=== PATIENT | female | born 1985 | race Caucasian/White ===

== ENCOUNTER → 2017-05-07 10:44 | Outpatient (CLI) | payer OTHER, SELFPAY ==
[2017-05-07 15:09] LABS: Group B Strep DNA By PCR Negative (Negative); Internal Control PASS; Probe Check PASS; Specimen Processing Control PASS
== END ==
PROVIDERS: Visit Provider Obstetrics & Gynecology
DX: Z36.85 Encounter for antenatal screening for Streptococcus B (principal)
CPT/HCPCS: 87081; 87653

== ENCOUNTER 2017-05-30 07:00 | Inpatient (IN) | payer OTHER, SELFPAY ==
[2017-05-30 07:31] VITALS: BMI 36.2
[2017-05-30] MEDS: Lactated Ringers 1,000 ML 50 ML IV ×2 (07:36→10:50)
[2017-05-30 08:05] LABS: Hematocrit 33.1 % (37-47); Hemoglobin 11.4 g/dl (12.0-15.0); Mean Corp Hgb Conc 34.4 g/gl (32-36); Mean Corpuscular Volume 89.9 fL (81-99); Mean Platelet Vol. 11.3 fl (6.2-12.0); Platelet Count 180 K/mm3 (150-450); RBC Distribution Width SD 45.1 fl (35.1-43.9); Red Blood Count 3.68 M/mm3 (4.2-5.4); Scan Indicated on CBC? Y/N NO; White Blood Count 10.5 K/mm3 (4.4-11.0)
[2017-05-30] MEDS: Oxytocin 30 units/NS 500 ml 30 UNITS/500 ML IV.SOLN IV (09:29)
[2017-05-30] MEDS: fentaNYL-bupivacaine (epidural) 100 ML BAG EPIDURAL (11:29)
[2017-05-30] MEDS: Oxytocin 30 units/NS 500 ml 30 UNITS/500 ML IV.SOLN 334 UNITS IV (14:15)
--- NOTE | 2017-05-30 14:24 | PCM.OB.VAG ---
Vaginal Delivery Maternal Presentation: Elective Induction 39 2/7 wk, favorable cervix. h/o LGA baby Method of Induction: Pitocin, Amniotomy Amniotic Membrane Rupture Type: Artificial Amniotic Fluid Description: Clear Final YEHUDA: 06/04/17 Final YEHUDA Source: US <20 weeks Gestational age: 39 Weeks and 2 Days Date of Procedure: 05/30/17 Pre-Operative Diagnosis: 39 2/7 wk induction Post-Operative Diagnosis: same Surgery/ Procedure Performed: Spontaneous Vaginal Delivery Type of Anesthesia: Epidural Description of Procedure: of a valentine viable male over intact perineum to 2nd posterior vaginal / perineal laceration. Head delivered YOJANA. No nuchal cord. Shoulders delivered immediately after VTX. OP and nares bulb suctioned after delivery of . Baby to maternal abdomen with spont, vigorous cry. Ap 8/9 weight pending. No cord gases collected. Cord blood for typing collected from umbilical cord. Incidentally: Falcon bulb pushed out through urethral with maternal expulsive effort of . PP exam; 2nd deg posterior vaginal to perineal laceration. Repaired under epidural to hemostatic, intact with 3-0 Vicryl. Placenta delivered by spont expulsion, expression. 3V cord, normal appearing, intact with trailinig membranes. EBL 350 cc Ray Samanta counts correct x two. Presentation: Vertex, YOJANA Placental Delivery Description: Spontaneous, Expressed Placenta Disposition: [facility] Cord Vessel Description: 3 Vessels Cord Entanglement: None Drain: Falcon to straight drain - bulb pushed out through urethra with delivery of infant. Urethra inspected: hemostatic, no bleeding noted. Estimated Blood Loss: 350 Infant A gender: Male (1 minute): 8 (5 minute): 9 Episiotomy Description: None Laceration: Midline, Perineal Extension/lac, Vaginal Extension/lac, 2nd degree Medications given after delivery: IV Pitocin Complications: None
--- NOTE | 2017-05-30 14:31 | DCINST_ITS ---
Discharge Diet: No Restrictions Discharge Activity: May Shower, May Take a Tub Bath Return to work on:: 07/15/17 May resume sexual activity in: 4-6 weeks Additional Activity Instructions:: Nothing in the vagina for 4-6 weeks. You may return to work/school in 6 weeks. Additional Instructions: If you experience any of the following, contact your healthcare provider. * Bleeding that soaks a pad every hour for 2 hours * Fever 100.4 or higher * Unrelieved abdominal pain * Problems urinating (including inability to urinate or burning while urinating) . * Visual changes * Severe headache * Flu-like symptoms * Pain or redness in one of both of your breasts * Pain, warmth, tenderness or swelling in your legs, especially the calf area * Frequent nausea and vomiting * Symptoms of depression or anxiety If you experience any of the following, call 911 or go to the nearest Emergency Room. * Chest pain * Problems breathing * Seizure activity * Partial or complete paralysis of a body part, slurred speech, weakness or drooping of the face, or a sudden inability to walk or hold your balance Allergies/Adverse Reactions: Allergies azithromycin [From Zithromax Z-Sam] Allergy (Verified 05/12/15 05:50) Hives Medications to take at Discharge Vits [Prenatabs FA] 1 tablet PO DAILY 05/12/15 Orders to be completed after discharge: Electric breast pump Time Frame: 1 Year, Location: None Selected Please Follow Up With: Josephine Paige MD - [phone] When: Call to make an appointment with your doctor in 6 weeks. If you had elevated Blood Pressure or 4th degree laceration you will need to be seen in 2 weeks. Primary Care Physician: Camilo Diggs [Primary Care Provider] -
[2017-05-30] MEDS: Oxytocin 30 units/NS 500 ml 30 UNITS/500 ML IV.SOLN 167 UNITS IV (14:45)
[2017-05-30 18:00] VITALS: PULSE 67; RESP 18; TEMP 36.4
[2017-05-30 18:01] LABS: Bedside Glucose 125 mg/dL (70-110)
--- NOTE | 2017-05-30 18:21 | PCM.PN.BLA ---
Progress Note Summary of Events Emergency call art range. On my arrival, pt sitting on toilet and in and out of consciousness. Nurse administered inhalant salts with patient returning to consciousness. No tonic clonic movements witnessed. Patient assisted to wheelchair with 3 person assist and wheeled to bedside. Transferred to bed with 2 person assist. Patient alert and oriented to person, place, and time with improvement of color. She reports everything darkening while sitting on toilet after emptying bladder. She was not attempting a bowel movement. Denies prior syncopal episodes or arrythmia. Episode not preceded by heart racing or shortness of breath. This was the first time she was out of bed following delivery. uncomplicated with 2nd degree perineal laceration. Denies further lightheadedness. POC glucose 125. BP 115/60 with heart rate 64. RRR with fundus firm at 2 below umbilicus and nontender with no clots on expression. Encouraged PO fluid hydration. Sx likely due to incomplete fluid equilibration. No evidence of hemorrhage. Hemodynamically stable. Will repeat CBC in am.
[2017-05-30 18:30] VITALS: BP 121/74; PULSE 81
--- NOTE | 2017-05-30 18:33 | PN_ITS ---
Progress Note Summary of Events Emergency call rat range. On my arrival, pt sitting on toilet and in and out of consciousness. Nurse administered inhalant salts with patient returning to consciousness. No tonic clonic movements witnessed. Patient assisted to wheelchair with 3 person assist and wheeled to bedside. Transferred to bed with 2 person assist. Patient alert and oriented to person, place, and time with improvement of color. She reports everything darkening while sitting on toilet after emptying bladder. She was not attempting a bowel movement. Denies prior syncopal episodes or arrythmia. Episode not preceded by heart racing or shortness of breath. This was the first time she was out of bed following delivery. uncomplicated with 2nd degree perineal laceration. Denies further lightheadedness. POC glucose 125. BP 115/60 with heart rate 64. RRR with fundus firm at 2 below umbilicus and nontender with no clots on expression. Encouraged PO fluid hydration. Sx likely due to incomplete fluid equilibration. No evidence of hemorrhage. Hemodynamically stable. Will repeat CBC in am.
--- NOTE | 2017-05-30 18:46 | NURSING ---
1750 pt second attempt to stand states she wants to try to get up and walk to the BR. gait steady and states has all her feeling back in her legs. Aditya and I assisted her. Shortly after sitting on the commode Jenise slumped to the side and went unconscious, not responding. We called for more help and an ammonia inhalent was brought in. After several seconds she started responding vaguely to us calling her name. The inhalent was taken away and she immediately slumped sideways again. The inhalent was returned to her nose and she revived again. We sat her in a wheelchair and had her return to bed. Vitals checked and are stable.After a short time she stated she was feeling better but now was nauseated. Dr. Dalia Zimmerman was here during the incident. 1829 She had approx. 700 cc emesis . Vitals remain stable. 1899 States feeling better but requesting Aleve for cramping.
--- NOTE | 2017-05-30 19:06 | NURSING ---
190Peripad changed for mod amt. bleeding.
[2017-05-30 19:55] VITALS: BP 129/63; PULSE 82; RESP 18; TEMP 37.4; O2SAT 97
[2017-05-30] MEDS: Ibuprofen 600 MG Tablet PO (20:05)
[2017-05-30] MEDS: Senna/Docusate Sodium 1 Tablet PO (22:18)
[2017-05-30 23:22] VITALS: BP 117/57; PULSE 80; RESP 18; TEMP 36.6; O2SAT 96
[2017-05-30] MEDS: Acetaminophen 500 MG Tablet 1000 MG PO (23:39)
[2017-05-31 04:00] VITALS: BP 113/59; PULSE 81; RESP 18; TEMP 36.9; O2SAT 94
[2017-05-31 04:50] LABS: Hematocrit 30.5 % (37-47); Hemoglobin 10.2 g/dl (12.0-15.0); Mean Corp Hgb Conc 33.4 g/gl (32-36); Mean Corpuscular Hgb 30.1 pg (27.0-32.0); Platelet Count 176 K/mm3 (150-450); RBC Distribution Width SD 46.2 fl (35.1-43.9); Red Blood Count 3.39 M/mm3 (4.2-5.4); White Blood Count 14.4 K/mm3 (4.4-11.0)
[2017-05-31 04:51] LABS: Scan Indicated on CBC? Y/N NO
[2017-05-31] MEDS: Ibuprofen 600 MG Tablet PO ×2 (07:38→14:56)
[2017-05-31] MEDS: Senna/Docusate Sodium 1 Tablet PO (07:39)
[2017-05-31 08:06] VITALS: BP 112/59; PULSE 80; RESP 16; TEMP 36.3; O2SAT 96
--- NOTE | 2017-05-31 08:14 | PCM.PN.OB ---
Subjective: PPD#1 Doing well. No concerns voiced. baby nursing well. 9# 7 oz wt . relates episode of passing out in bathroom and record reviewed. Random glucose then 125. No other problems since delivery. Up to bathroom, no dizziness / weakness with walking. and would like to go home today if possible. CBC done this AM. - Physical Exam General: Alert, Oriented x3, Cooperative, No apparent distress HEENT: Atraumatic Neck: Supple Abdomen: Soft - fundus firm NT at 2-3 cm inferior to umbilicus Neurological: Cranial nerves II-XII grossly intact Psych/Mental Status: Normal Affect Vital Signs Temp Pulse Resp BP Pulse Ox 97.3 F L 80 16 112/59 L 96 05/31/17 08:06 05/31/17 08:06 05/31/17 08:06 05/31/17 08:06 05/31/17 08:06 Oxygen Delivery Method Room Air Weight: 105 kg Body Mass Index (BMI) 36.2 Intake and Output for Last 24 Hours 05/29/17 05/30/17 05/31/17 23:59 23:59 23:59 Intake Total 2795 / 2795 Output Total 1175 / 1175 Balance 1620 / 1620 Laboratory Tests Past 24 Hrs 05/30/17 05/31/17 07:35 04:40 WBC 14.4 H RBC 3.39 L Hgb 10.2 L Hct 30.5 L MCV 90.0 MCH 30.1 MCHC 33.4 RDW 14.0 RDW Differential 46.2 H Plt Count 176 MPV 11.0 Blood Type A NEGATIVE Antibody Screen NEGATIVE POC Glucose 05/30/17 17:57 POC Glucose 125 H Medical Necessity - Tobacco Use Smoking Status: Never smoker Assessment/Plan PPD#1 Stable pp. CBC stable. likely vasovagal event last night when in bathroom and none since Dischg home later today. RTO in 6 wk for pp check.
[2017-05-31 12:06] VITALS: BP 109/53; PULSE 89; RESP 18; TEMP 36.5; O2SAT 96
[2017-05-31 16:15] VITALS: BP 120/68; PULSE 97; TEMP 36.4; O2SAT 98
== END 2017-05-31 18:35 | disposition home or self-care (01) | DRG 775 ==
PROVIDERS: Obstetrics & Gynecology; Admitting Provider Obstetrics & Gynecology; Family Provider Family Medicine; PCP Family Medicine; Visit Provider Obstetrics & Gynecology
DX: O70.1 Second degree perineal laceration during delivery (principal); Z37.0 Single live birth; Z3A.39 39 weeks gestation of pregnancy; R55 Syncope and collapse
CPT/HCPCS: 59025; 59050; 82962; 85027; 86850; 86900; 99218; J7120; G0378

== ENCOUNTER → 2021-02-01 | Outpatient (CLI) | payer OTHER, SELFPAY ==
[2021-02-01 13:31] LABS: Amphetamine Urine VISTA NEGATIVE (<1000 ng/mL); Barbiturate Urine VISTA NEGATIVE (< 200 ng/mL); Benzodiazepine Urine VISTA NEGATIVE (< 200 ng/mL); Cocaine Urine VISTA NEGATIVE (< 300 ng/mL); Ecstacy Urine VISTA NEGATIVE (< 500 ng/mL); Methadone Urine VISTA NEGATIVE (< 300 ng/mL); PCP Urine VISTA NEGATIVE (< 25 ng/mL); THC Urine VISTA NEGATIVE (< 50 ng/mL); Vista UDS pH Range 6
[2021-02-02 22:07] LABS: Chlamydia By Nucleic Acid AMP Negative (Negative)
[2021-02-03 08:08] LABS: Gonococcus By Nucleic Acid AMP Negative (Negative)
[2021-02-06 13:32] LABS: HPV APTIMA, High Risk Negative (Negative)
== END | disposition home or self-care (01) ==
LOC: LABSPEC 12:38
PROVIDERS: PCP Family Medicine; Visit Provider Obstetrics & Gynecology
DX: Z34.90 Encounter for supervision of normal pregnancy, unspecified, unspecified trimester (principal)
CPT/HCPCS: 80307; 87086; 87088; 87491; 87591; 87624; 88175; G0145

== ENCOUNTER 2021-02-28 10:38 | Outpatient (CLI) | payer OTHER, SELFPAY ==
[2021-02-28 11:03] LABS: Absolute Neutrophil Count 7.1 X10^3/uL (2.0-7.7); Basophil# 0.04 X10^3/uL; Basophil% 0.4 % (0-1); Eosinophil# 0.22 X10^3/uL; Eosinophils% 2.3 % (0-5); Hemoglobin 11.9 g/dL (12.0-15.0); Lymphocyte % 13.8 % (19-41); Mean Corpuscular Hgb 30.7 pg (27.0-32.0); Mean Corpuscular Volume 87.6 fL (81-99); Mean Platelet Vol. 11.1 fl (6.2-12.0); Monocyte# 0.79 X10^3/uL; Monocyte% 8.4 % (0-10); NRBC Flagged by Analyzer 0 % (0-5); Neutrophil # 7.07 X10^3/uL (2.7-7.7); Neutrophil % 74.8 % (47-70); Platelet Count 184 K/mm3 (150-450); RBC Distribution Width CV 12.7 % (11.6-14.6); RBC Distribution Width SD 39.9 fl (35.1-43.9); Red Blood Count 3.88 M/mm3 (4.2-5.4); White Blood Count 9.5 K/mm3 (4.4-11.0)
[2021-02-28 11:10] LABS: Glucose Challenge Gest 1H 50g 99 mg/dL (70-140)
[2021-02-28 11:54] LABS: HIV - WCH Non-Reactive (Nonreactive); Hepatitis B Surface Antigen Non-Reactive (Nonreactive); Hepatitis C Antibody Non-Reactive (Nonreactive); Rubella IgG Reactive (Nonreactive); Syphilis Antibodies Non-reactive
== END 2021-02-28 23:59 | disposition short-term general hospital (02) ==
LOC: PAVLAB 10:40
PROVIDERS: PCP Family Medicine; Referring Provider Obstetrics & Gynecology; Visit Provider Obstetrics & Gynecology
DX: Z34.90 Encounter for supervision of normal pregnancy, unspecified, unspecified trimester (principal)
CPT/HCPCS: 36415; 82950; 85025; 86703; 86762; 86780; 86803; 86850; 86900; 86901; 87340

== ENCOUNTER → 2021-06-13 | Outpatient (CLI) | payer OTHER, SELFPAY ==
[2021-06-13 10:42] LABS: Absolute Lymphocyte Count 1.61 X10^3/uL (0.83-4.51); Basophil# 0.02 X10^3/uL; Basophil% 0.2 % (0-1); Eosinophil# 0.15 X10^3/uL; Eosinophils% 1.4 % (0-5); Hematocrit 35.7 % (37-47); Hemoglobin 12.1 g/dL (12.0-15.0); Lymphocyte # 1.61 X10^3/ul (0.83-4.51); Lymphocyte % 15.2 % (19-41); Mean Corp Hgb Conc 33.9 g/dL (32-36); Mean Corpuscular Hgb 31.5 pg (27.0-32.0); Monocyte# 0.69 X10^3/uL; Monocyte% 6.5 % (0-10); NRBC Flagged by Analyzer 0 % (0-5); Neutrophil # 8.03 X10^3/uL (2.7-7.7); Neutrophil % 75.9 % (47-70); Platelet Count 193 K/mm3 (150-450); RBC Distribution Width CV 13.2 % (11.6-14.6); RBC Distribution Width SD 44.7 fl (35.1-43.9); Red Blood Count 3.84 M/mm3 (4.2-5.4); White Blood Count 10.6 K/mm3 (4.4-11.0)
[2021-06-13 11:13] LABS: Glucose Challenge Gest 1H 50g 95 mg/dL (70-140)
== END | disposition home or self-care (01) ==
LOC: PAVLAB 10:02
PROVIDERS: PCP Family Medicine; Referring Provider Obstetrics & Gynecology; Visit Provider Obstetrics & Gynecology
DX: O26.899 Other specified pregnancy related conditions, unspecified trimester (principal); Z67.91 Unspecified blood type, Rh negative; Z3A.00 Weeks of gestation of pregnancy not specified
CPT/HCPCS: 36415; 82950; 85025; 86850; 86900; 86901

== ENCOUNTER → 2021-08-04 | Outpatient (CLI) | payer OTHER, SELFPAY ==
--- NOTE | 2021-08-04 14:10 | US_ITS ---
STUDY: SECOND AND THIRD TRIMESTER OBSTETRICAL ULTRASOUND REASON FOR EXAM: Female, 35 years old growth LMP: 11/24/2020. TECHNIQUE: Transabdominal TECHNICAL QUALITY: Adequate. PRIOR ULTRASOUND: None. FINDINGS: There is a single intrauterine fetus. The fetus is in a cephalic presentation. There is demonstrated cardiac activity with a heart rate of 126 bpm. There is a normal amniotic fluid volume. The largest amniotic fluid pocket measures 3.5 cm. The amniotic fluid index (CAMRON) is 9.7 cm. The placenta is anterior in location and is not low lying. There are Grade 1 placental changes. The cervix measures 3.7 cm in length. The adnexal regions are not visualized. BIOMETRY: BPD: 9.15 cm: 37 weeks, 0 days HC: 33.32 cm: 38 weeks, 0 days AC: 33.52 cm: 37 weeks, 2 days FL: 6.87 cm: 35 weeks, 1 days CI: 81% FL/BPD: 75% FL/HC: FL/AC: 20% HC/AC: 0.99 age by current US: 37 weeks, 0 days. YEHUDA by current US: 08/25/2021. Estimated weight: 3076 grams, +/- 461 grams, 73 %. Age by LMP: 37 weeks, 0 days. YEHUDA by LMP: 08/25/2021. US/OB Limited With Biometrics IMPRESSION: Single live intrauterine gestation with a mean gestational age of 37 weeks. Electronically Signed: Rodolfo Esparza MD at 15:32 EDT ,
== END | disposition home or self-care (01) ==
PROVIDERS: PCP Family Medicine; Referring Provider Obstetrics & Gynecology; Visit Provider Obstetrics & Gynecology
DX: O98.513 Other viral diseases complicating pregnancy, third trimester (principal); U07.1 COVID-19
CPT/HCPCS: 76816; 87081

== ENCOUNTER 2021-09-05 21:05 | Inpatient (IN) | payer OTHER, SELFPAY ==
[2021-09-05] VITALS (19 sets, daily range): BP systolic 116–146; BP diastolic 61–76; PULSE 74–111; TEMP 36.4–36.8; O2SAT 97–99; BMI 36.6
[2021-09-05 19:29] LABS: ROM Internal Control Test YES-OK TO RESULT pt. (Internal QC); ROM Patient Test Negative (Negative)
[2021-09-05] MEDS: Lactated Ringers 1,000 ML 50 ML IV (21:25)
[2021-09-05] MEDS: LACTATED RINGERS 500 ML 999 ML IV (21:26)
[2021-09-05 21:42] LABS: Absolute Lymphocyte Count 2.73 X10^3/uL (0.83-4.51); Absolute Neutrophil Count 10.3 X10^3/uL (2.0-7.7); Basophil# 0.04 X10^3/uL; Basophil% 0.3 % (0-1); Eosinophils% 0.7 % (0-5); Hemoglobin 11.7 g/dL (12.0-15.0); Lymphocyte # 2.73 X10^3/ul (0.83-4.51); Lymphocyte % 19.1 % (19-41); Mean Corp Hgb Conc 33.4 g/dL (32-36); Mean Corpuscular Hgb 31.2 pg (27.0-32.0); Mean Corpuscular Volume 93.3 fL (81-99); Mean Platelet Vol. 11.2 fl (6.2-12.0); Monocyte# 0.99 X10^3/uL; Monocyte% 6.9 % (0-10); NRBC Flagged by Analyzer 0 % (0-5); Neutrophil # 10.33 X10^3/uL (2.7-7.7); Neutrophil % 72.4 % (47-70); Platelet Count 220 K/mm3 (150-450); RBC Distribution Width SD 47.3 fl (35.1-43.9); Red Blood Count 3.75 M/mm3 (4.2-5.4); White Blood Count 14.3 K/mm3 (4.4-11.0)
[2021-09-05] MEDS: fentaNYL-bupivacaine (epidural) 100 ML BAG EPIDURAL (23:45)
[2021-09-06] VITALS (40 sets, daily range): BP systolic 92–126; BP diastolic 50–70; PULSE 61–111; RESP 16–18; TEMP 35.7–36.9; O2SAT 96–99
[2021-09-06] MEDS: LACTATED RINGERS 500 ML 999 ML IV (00:08)
[2021-09-06] MEDS: Oxytocin 30 units/NS 500 ml 30 UNITS/500 ML IV.SOLN IV (01:17)
[2021-09-06] MEDS: Oxytocin 30 units/NS 500 ml 30 UNITS/500 ML IV.SOLN 334 UNITS IV (04:36)
--- NOTE | 2021-09-06 05:38 | HP.PCM.OB_ITS ---
HPI - General General Date of Admission: 09/05/21 Date of Service: 09/05/21 HPI Narrative BECK SAMSON, is a 35 y/o @ 40 weeks 5 days who presents to L&D with contractions and making cervical change. Maternal Data Information YEHUDA Calculator Estimated Delivery Date Method Current WG Current Estimate 08/31/21 Ultrasound #1 40w 6d Other Estimates 09/07/21 LMP (Certain) 39w 6d PFSH PFSH Medical History (Updated 09/04/21 @ 10:15 by Libra Senior) COVID-19 vaccine series completed H/O gastric ulcer Lower extremity surgery planned Home Medications vits,calcium no.78-iron fumarate-folic acid 29 mg-1 mg tablet (Prenatabs FA) 1 tab PO DAILY 05/12/15 [History Last Taken 09/04/21 21:00] aspirin 81 mg tablet,delayed release 81 mg PO DAILY 07/25/21 [History Last Taken 09/03/21 08:00] calcium phosphate,dibasic 77 mg-vitamin D3 400 unit tablet 1 tab PO DAILY 09/05/21 [History Last Taken 09/04/21 21:00] Allergy/AdvReac Type Severity Reaction Status Date / Time azithromycin Allergy Hives Verified 09/05/21 18:54 [From Zithromax Z-Sam] Family History Other Diabetes Surgical History (Updated 09/05/21 @ 20:36 by Betty Winters) History of surgery Social History adopted: No household members: family housing: house number of children: 2 current occupational status: employed pets and animals: No Smoking Status: Never smoker second hand exposure: Yes alcohol intake: never seatbelt use: always do you feel safe at home: Yes additional social history: - Travis History 3 Elective abortions Hx Para 2 Spontaneous abortions Hx # Term Pregnancies Ectopic pregnancies Hx # Pregnancies Multiple births # of living children 2 Past Pregnancies Del. Date Name GA/Weeks Outcome Route Bth Weight Gen Labor Lgth Anesthesia Del Locatn Provider FOB 06/12/15 Rajesh 41 live - full term 9lbs Male 14 ho urs epidural Richard Dr. Grecia Robles 05/30/17 Darryl 39 live - full term 9lbs 9oz Male 6 ho urs epidural Richard Dr. Grecia Robles Delivery Date: 06/12/15 Last Updated by: Josephine Hopper IoL post dates- 2nd degree laceration Delivery Date: 05/30/17 Last Updated by: Josephine Hopper 2nd degree laceration Visit Details Expected Delivery Route/Plan Labor Preferences- CB/BF classes: no labor support person: Travis labor intervention preferences: pain management options preferred: epidural cut cord/dad catch: yes : yes PP control planned: condoms discussed possible routes of delivery and associated risks: [] special requests: [] Plans Covid status: fully vaccinated and boosted Flu vaccine: given Tdap vaccine: given Rhogam: declines LARC form signed: yes Problem list reviewed and updated with the most current plan of care details and appropriate orders placed. Relevant counseling for the gestational age provided. Continue routine care and follow up unless otherwise noted in visit notes/problem list details OB Flowsheet Initial Weight: 205 lb Date -?-?-?-?-?-?-?-?-?-?-?-?- EGA Weight BP Urine Prot -?-?-?-?-?-?-?-?-?-?-?-?- Glucose FHR FuHt Pres Dilation -?-?-?-?-?-?-?-?-?-?-?-?- Effaced St Visit Note 02/01/21 -?-?-?-?-?-?-?-?-?-?-?-?- 9w 6d 205 lb (+0 oz) 134/72 -?-?-?-?-?-?-?-?-?-?-?-?- -?-?-?-?-?-?-?-?-?-?-?-?- JV- CRL off by 1 week from LMP. YEHUDA 08/31/2021 02/28/21 -?-?-?-?-?-?-?-?-?-?-?-?- 13w 5d 204 lb (-16 oz) 130/82 Negative -?-?-?-?-?-?-?-?-?-?-?-?- Negative -?-?-?-?-?-?-?-?-?-?-?-?- SM- no vb crampi ng 03/27/21 -?-?-?-?-?-?-?-?-?-?-?-?- 17w 4d 207 lb (+2 lb) 122/84 Negative -?-?-?-?-?-?-?-?-?-?-?-?- Negative -?-?-?-?-?-?-?-?-?-?-?-?- SM no vb lof fire [employer] mping SM no vb lof cramping less n santy, prr 04/25/21 -?-?-?-?-?-?-?-?-?-?-?-?- 21w 5d 216 lb 4 oz (+11 lb 4 oz) 136/70 Negative -?-?-?-?-?-?-?-?-?-?-?-?- Negative 150 -?-?-?-?-?-?-?-?-?-?-?-?- SM- no vb lof go od fm 05/24/21 -?-?-?-?-?-?-?-?-?-?-?-?- 25w 6d 221 lb 4 oz (+16 lb 4 oz) 122/78 Negative -?-?-?-?-?-?-?-?-?-?-?-?- Negative 160 -?-?-?-?-?--?-?-?-?-?-?-?- JV- no lof, vagi nal bleeding, or cramping. partner is rh neg as well. she declines rhogam 06/13/21 -?-?-?-?-?-?-?-?-?-?-?-?- 28w 5d 224 lb 6 oz (+19 lb 6 oz) 128/70 Negative -?-?-?-?-?-?-?-?-?-?-?-?- Negative 153 -?-?-?-?-?-?-?-?-?-?-?-?- MH-No Vb,LOF. Go od FM. Larc, tdap, 28 wk labs. Declines rhogam, FOB rh neg. 06/28/21 -?-?-?-?-?-?-?-?-?-?-?-?- 30w 6d 226 lb 2 oz (+21 lb 2 oz) 122/70 Negative -?-?-?-?-?-?--?-?-?-?-?-?- Negative 165 30 -?-?-?-?-?-?-?-?-?-?-?-?- JV- no lof, vagi nal bleeding, or dec fm. normal gct and cbc 07/25/21 -?-?-?-?-?-?-?-?-?-?-?-?- 34w 5d 230 lb 6 oz (+25 lb 6 oz) 130/70 Negative -?-?-?-?-?-?-?-?-?-?-?-?- Negative 155 35 -?-?-?-?-?-?-?-?-?-?-?-?- JV- pt had covid 2 weeks ago. on baby asa and growth scan for next week. 08/04/21 -?-?-?-?-?-?-?-?-?-?-?-?- 36w 1d 233 lb 2 oz (+28 lb 2 oz) 136/70 Negative -?-?-?-?-?-?-?-?-?-?-?-?- Negative 160 36 Cephalic 1 -?-?-?-?-?-?-?-?-?-?-?-?- 0 -3 JV- growth today normal (70th%) gbs collected. 08/09/21 -?-?-?-?-?-?-?-?-?-?-?-?- 36w 6d 230 lb 4 oz (+25 lb 4 oz) 128/64 Trace -?-?-?-?-?-?-?-?-?-?-?-?- Negative 147 37 -?-?-?-?-?-?-?-?-?-?-?-?- MH-NO VB, LOF, C TX. Good FM. Declines internal exam 08/16/21 -?-?-?-?-?-?-?-?-?-?-?-?- 37w 6d 232 lb 2 oz (+27 lb 2 oz) 130/70 Negative -?-?-?-?-?-?-?-?-?-?-?-?- Negative 159 Cephalic 1 -?-?-?-?-?-?-?-?-?-?-?-?- 60 -2 JV- no lof , vaginal bleeding, or dec fm. 08/25/21 -?-?-?-?-?-?-?-?-?-?-?-?- 39w 1d 233 lb (+28 lb) 126/74 Negative -?-?-?-?-?-?-?-?-?-?-?-?- Negative 150 39 Cephalic 1 -?-?-?-?-?-?-?-?-?-?-?-?- 60 -2 SM- no vb lof good fm no regualr ctx 08/29/21 -?-?-?-?-?-?-?-?-?-?-?-?- 39w 5d 233 lb 4 oz (+28 lb 4 oz) 122/76 Negative -?-?-?-?-?-?-?-?-?-?-?-?- Negative 150 39 Cephalic 2 .5 -?-?-?-?-?-?-?-?-?-?-?-?- 60 -1 SM- no vb lof good fm no regular ctx membranes swept discussed IOL saturday09/04/21 -?-?-?-?-?-?-?-?-?-?-?-?- 40w 4d 233 lb 8 oz (+28 lb 8 oz) 125/75 Negative -?-?-?--?-?-?-?-?-?-?-?-?- Negative -?-?-?-?-?-?-?-?-?-?-?-?- membranes swept ROS Constitutional Constitutional: Denies change in weight, fatigue, fever(s), headache(s), poor appetite or weakness Eyes Eyes: Denies blurry vision, change in vision, seeing flashes or spots in vision ENT HEENT: Denies dizziness, headache(s), loss taste/smell or sore throat Cardiovascular Cardiovascular: Denies chest pain, dizziness, dyspnea, irregular heart rhythm, leg edema, palpitations, rapid heart rate or vomiting Respiratory/Chest Respiratory/Chest: Denies chest tightness, cough, dyspnea or breast pain Gastrointestinal Gastrointestinal: Denies abdominal pain, anorexia, constipation, cramping, diarrhea, hemorrhoids, vomiting or weight changes Genitourinary Genitourinary: Denies dysuria, flank pain, genital lesions, genital pain, urinary frequency or urinary urgency Musculoskeletal Musculoskeletal: Denies back pain, difficulty walking, joint pain, limited range of motion, muscle cramps or numbness Integumentary Integumentary: Denies lesions or unusual bruising Neurologic Neurologic: Denies abnormal movements, abnormal speech, dizziness, numbness, seizure-like activity or syncope Psychiatric Psychiatric: Denies anxiety, behavioral changes, change in appetite, change in libido, cognitive impairment, confusion, depression, difficulty concentrating, hallucinations or suicidal thoughts Endocrine Endocrinology: Denies excessive sweating, polydipsia or polyuria Hematologic/Lymphatic Hematologic/Lymphatic: Denies easy bleeding, easy bruising or lymphadenopathy Allergic/Immunologic Allergic/Immunologic: Denies itchy eyes, lip swelling, seasonal rhinorrhea, rhinitis, throat swelling, tongue swelling, eczemia, wheezing or asthma Vital Signs Vital Signs Vital Signs: 09/05/21 18:57 09/05/21 18:57 09/05/21 18:57 Temperature 98.2 F Temperature Source Pulse Rate 74 Blood Pressure 131/73 H BP Systolic 131 BP Diastolic 73 Pulse Ox 09/05/21 18:57 09/05/21 18:57 09/05/21 20:05 Temperature 97.6 F L Temperature Source Temporal Pulse Rate Blood Pressure 126/73 H BP Systolic 126 BP Diastolic 73 Pulse Ox 09/05/21 20:05 09/05/21 20:06 09/05/21 20:06 Temperature 97.5 F L Temperature Source Temporal Pulse Rate 79 Blood Pressure BP Systolic BP Diastolic Pulse Ox 09/05/21 22:03 09/05/21 22:03 09/05/21 22:03 Temperature Temperature Source Pulse Rate 76 Blood Pressure 116/66 BP Systolic 116 BP Diastolic 66 Pulse Ox 98 09/05/21 22:04 09/05/21 22:22 09/05/21 22:03 Temperature 98.1 F Temperature Source Temporal Pulse Rate 87 Blood Pressure BP Systolic BP Diastolic Pulse Ox 09/05/21 23:10 09/05/21 23:10 09/05/21 23:09 Temperature 97.5 F L Temperature Source Pulse Rate 81 Blood Pressure 119/65 BP Systolic 119 BP Diastolic 65 Pulse Ox 09/05/21 23:10 09/05/21 23:27 09/05/21 23:27 Temperature Temperature Source Temporal Pulse Rate 88 Blood Pressure BP Systolic BP Diastolic Pulse Ox 98 09/05/21 23:31 09/05/21 23:32 09/05/21 23:32 Temperature Temperature Source Pulse Rate 87 Blood Pressure 143/76 H BP Systolic 143 BP Diastolic 76 Pulse Ox 99 09/05/21 23:36 09/05/21 23:36 09/05/21 23:37 Temperature Temperature Source Pulse Rate 82 77 Blood Pressure 128/69 H BP Systolic 128 BP Diastolic 69 Pulse Ox 09/05/21 23:37 09/05/21 23:42 09/05/21 23:42 Temperature Temperature Source Pulse Rate 109 H Blood Pressure 146/65 H BP Systolic 146 BP Diastolic 65 Pulse Ox 99 09/05/21 23:42 09/05/21 23:47 09/05/21 23:47 Temperature Temperature Source Pulse Rate 105 H Blood Pressure BP Systolic BP Diastolic Pulse Ox 98 98 09/05/21 23:50 09/05/21 23:50 09/05/21 23:52 Temperature Temperature Source Pulse Rate 111 H 101 H Blood Pressure 121/62 H BP Systolic 121 BP Diastolic 62 Pulse Ox 09/05/21 23:52 09/05/21 23:54 09/05/21 23:54 Temperature Temperature Source Pulse Rate 93 Blood Pressure 128/61 H BP Systolic 128 BP Diastolic 61 Pulse Ox 97 09/05/21 23:57 09/05/21 23:57 09/05/21 23:57 Temperature Temperature Source Pulse Rate 90 Blood Pressure 117/62 BP Systolic 117 BP Diastolic 62 Pulse Ox 98 09/06/21 00:02 09/06/21 00:02 09/06/21 00:02 Temperature Temperature Source Pulse Rate 111 H Blood Pressure 126/70 H BP Systolic 126 BP Diastolic 70 Pulse Ox 98 09/06/21 00:06 09/06/21 00:06 09/06/21 00:07 Temperature Temperature Source Pulse Rate 91 101 H Blood Pressure 100/53 L BP Systolic 100 BP Diastolic 53 Pulse Ox 09/06/21 00:07 09/06/21 00:11 09/06/21 00:11 Temperature Temperature Source Pulse Rate 86 Blood Pressure 98/50 L BP Systolic 98 BP Diastolic 50 Pulse Ox 97 09/06/21 00:12 09/06/21 00:12 09/06/21 00:17 Temperature Temperature Source Pulse Rate 86 Blood Pressure 96/53 L BP Systolic 96 BP Diastolic 53 Pulse Ox 98 09/06/21 00:17 09/06/21 00:17 09/06/21 00:18 Temperature Temperature Source Pulse Rate 84 Blood Pressure 97/55 L BP Systolic 97 BP Diastolic 55 Pulse Ox 97 09/06/21 00:18 09/06/21 00:22 09/06/21 00:22 Temperature Temperature Source Pulse Rate 96 82 Blood Pressure 108/51 L BP Systolic 108 BP Diastolic 51 Pulse Ox 09/06/21 00:22 09/06/21 00:27 09/06/21 00:27 Temperature Temperature Source Pulse Rate 76 Blood Pressure 106/51 L BP Systolic 106 BP Diastolic 51 Pulse Ox 98 09/06/21 00:27 09/06/21 00:27 09/06/21 00:31 Temperature Temperature Source Pulse Rate 76 Blood Pressure 101/57 L BP Systolic 101 BP Diastolic 57 Pulse Ox 97 09/06/21 00:31 09/06/21 00:32 09/06/21 00:32 Temperature Temperature Source Pulse Rate 85 92 Blood Pressure BP Systolic BP Diastolic Pulse Ox 97 09/06/21 00:41 09/06/21 00:41 09/06/21 00:42 Temperature Temperature Source Pulse Rate 73 66 Blood Pressure 92/53 L BP Systolic 92 BP Diastolic 53 Pulse Ox 09/06/21 00:42 09/06/21 00:47 09/06/21 00:47 Temperature Temperature Source Pulse Rate 85 Blood Pressure 96/54 L BP Systolic 96 BP Diastolic 54 Pulse Ox 98 09/06/21 00:47 09/06/21 00:47 09/06/21 00:51 Temperature Temperature Source Pulse Rate 96 Blood Pressure 100/52 L BP Systolic 100 BP Diastolic 52 Pulse Ox 97 09/06/21 00:51 09/06/21 00:52 09/06/21 00:52 Temperature Temperature Source Pulse Rate 103 H 80 Blood Pressure BP Systolic BP Diastolic Pulse Ox 99 09/06/21 00:57 09/06/21 00:57 09/06/21 02:18 Temperature Temperature Source Pulse Rate 80 Blood Pressure 111/59 L BP Systolic 111 BP Diastolic 59 Pulse Ox 98 09/06/21 02:18 09/06/21 02:19 09/06/21 03:10 Temperature 96.6 F L Temperature Source Pulse Rate 77 Blood Pressure 113/60 BP Systolic 113 BP Diastolic 60 Pulse Ox 09/06/21 03:10 09/06/21 03:11 09/06/21 03:54 Temperature 96.3 F L Temperature Source Pulse Rate 68 Blood Pressure 106/63 BP Systolic 106 BP Diastolic 63 Pulse Ox 09/06/21 03:54 09/06/21 03:54 09/06/21 04:46 Temperature 97.0 F L 98.2 F Temperature Source Pulse Rate 72 Blood Pressure BP Systolic BP Diastolic Pulse Ox 09/06/21 04:46 09/06/21 04:46 09/06/21 05:07 Temperature Temperature Source Pulse Rate 87 Blood Pressure 126/59 H 100/59 L BP Systolic 126 100 BP Diastolic 59 59 Pulse Ox 09/06/21 05:07 09/06/21 05:16 09/06/21 05:16 Temperature Temperature Source Pulse Rate 68 77 Blood Pressure 96/57 L BP Systolic 96 BP Diastolic 57 Pulse Ox 09/06/21 05:31 09/06/21 05:31 Temperature Temperature Source Pulse Rate 71 Blood Pressure 97/58 L BP Systolic 97 BP Diastolic 58 Pulse Ox Weight Weight: 233 lb 14.567 oz Body Mass Index (BMI) 36.6 Physical Exam Const alert, oriented x3, no apparent distress and healthy appearing General Appearance: cooperative; Negative for anxious HEENT normocephalic Face and Sinus: normal facial exam Eyes EOMs intact bilaterally and no scleral icterus General Eye: normal appearance of both eyes Neck full ROM and supple Lymph Lymphatic: no lymphadenopathy noted Chest Chest: abnormal inspection of the chest Resp normal respiratory effort Effort and Inspection: able to speak in complete sentences Cardio regular rate GI soft to palpation and non-tender Inspection: gravid Palpation: soft; Negative for tender external exam normal Amniotic Fluid: ROM+plus negative - and other cervix is 4 cm dilated/80/-2 Back/Spine no CVA tenderness Extremity normal to inspection, full ROM and no clubbing, cyanosis or edema General Extremity: Negative for calf tenderness or edema Skin Lesions: no lesions Rashes: no rashes Psych mental status grossly normal Labs Labs Labs: Blood Type A NEGATIVE Antibody Screen NEGATIVE Hct 35.0 % (37-47) L Hgb 11.7 g/dL (12.0-15.0) L Pap Smear Negative Obstetrics US Syphilis Total Ab Non-reactive Rubella IgG Antibody Reactive (Nonreactive) Hep Bs Antigen Non-Reactive (Nonreactive) Chlamydia DNA ([place]) Negative (Negative) Neisseria gonorrhoeae DNA ([place]) Negative (Negative) HIV 1&2 Antibody Non-Reactive (Nonreactive) Glucose 1 Hr 50 gm 95 mg/dL (70-140) Group B Strep DNA Negative (Negative) Rhogam given: No Assessment & Plan (1) : QUALIFIERS: Weeks of gestation: 40 weeks Qualified Code(s): Z3A.40 - 40 weeks gestation of COMMENT: declined genetic and carrier, additional views for anatomy nl. GBS neg (2) Supervision of other normal : COMMENT: PRR YEHUDA: 09/07/21 girl PC: Darryl Mena Spouse: Travis (3) Rh negative status during : QUALIFIERS: Trimester: third trimester Qualified Code(s): O26.893 - Other specified related conditions, third trimester; Z67.91 - Unspecified blood type, Rh negative COMMENT: A neg- is also A neg- Declines rhogam Proof of Travis's blood type scanned to chart (4) Family history of cystic fibrosis: COMMENT: Maternal Aunt (5) History of tetanus, diphtheria, and acellular pertussis booster vaccination (Tdap): COMMENT: 06/13/21 (6) COVID-19 affecting in third trimester: COMMENT: asa 81 mg daily, growth US @ 36 weeks PLAN: Plan Patient presents IAL, plan expectant management for , pitocin/AROM PRN if needed. Pain management: plans epidural. GBS negative . Management of any complications: none I have reviewed the [facility] and made any clinically relevant updates.
--- NOTE | 2021-09-06 05:42 | EX.PCM.OBRPT ---
Assessment & Plan (1) : QUALIFIERS: Weeks of gestation: 40 weeks Qualified Code(s): Z3A.40 - 40 weeks gestation of COMMENT: declined genetic and carrier, additional views for anatomy nl. GBS neg (2) Supervision of other normal : COMMENT: PRR YEHUDA: 09/07/21 girl PC: Darryl Mena Spouse: Travis (3) Rh negative status during : QUALIFIERS: Trimester: third trimester Qualified Code(s): O26.893 - Other specified related conditions, third trimester; Z67.91 - Unspecified blood type, Rh negative COMMENT: A neg- is also A neg- Declines rhogam Proof of Travis's blood type scanned to chart (4) Family history of cystic fibrosis: COMMENT: Maternal Aunt (5) History of tetanus, diphtheria, and acellular pertussis booster vaccination (Tdap): COMMENT: 06/13/21 (6) COVID-19 affecting in third trimester: COMMENT: asa 81 mg daily, growth US @ 36 weeks Maternal Data Information YEHUDA Calculator Estimated Delivery Date Method Current WG Current Estimate 08/31/21 Ultrasound #1 40w 6d Other Estimates 09/07/21 LMP (Certain) 39w 6d Final YEHUDA: 08/31/21 Final YEHUDA Source: US <20 weeks Vaginal Delivery Maternal Presentation Maternal Presentation: Active Labor Operative Information Date of Procedure: 09/06/21 Pre-Operative Diagnosis: 40 weeks 6 days, active labor Post-Operative Diagnosis: 40 weeks 6 days, active labor Type of Anesthesia: Epidural Estimated Blood Loss: 300cc Findings Description of Procedure: Patient began pushing and delivered the head in the MICHELLE presentation. The head was delivered atraumatically. The anterior and posterior shoulders delivered without complication followed by the rest of the infant and the was placed on the maternal abdomen. Delayed cord clamping was employed for approximately 60 seconds. Cord was clamped and cut and gentle traction was applied to the cord and the placenta delivered spontaneously immediately following it was noted to be intact with three-vessel cord. The perineum and vagina were inspected and noted to have a 1st degree perineal laceration. EBL was 300cc. Patient and infant tolerated delivery well. Presentation: Vertex Amniotic Membrane Rupture Type: Spontaneous Amniotic Fluid Description: Clear Placental Delivery Description: Spontaneous Placenta Disposition: [facility] Cord Vessel Description: 3 Vessels Cord Entanglement: None Infant A Gender: Female (1 minute): 8 (5 minute): 9 Delayed Cord Clamping: Yes Post Vaginal Delivery Medications Given After Delivery: IV Pitocin Episiotomy Description: None Laceration: 1st degree Complication Complications: None Multi Select Codes Urinary/Genital Urinary/Genital CPT Codes: 04528 Vaginal Delivery [facility]
--- NOTE | 2021-09-06 05:45 | DCINST_ITS ---
Discharge Instructions Diet Discharge Diet: No restrictions Activity Discharge Activity: Return to Normal Activity, May Not Drive (while taking narcotic pain medications.) and May Shower May resume sexual activity in: 4-6 weeks Dressing / Incision Call your doctor if your incision/area has: Continuous Slow Oozing, Sudden Increased Bleeding, Increased Pain/ Swelling, Increased Redness and Foul Smelling Discharge Follow Up Care Please Follow Up With: Shelly Mathew DO When: Call [phone] to make an appointment with your doctor in 6 weeks. If you had elevated blood pressure or 4th degree laceration, you will need to be seen in 2 weeks. Test Results: Test results from this visit will be discussed in further detail at your follow- up appointment, if applicable. Discharge Plan Admission Admit Date/Time: 09/05/21 21:05 Primary Reason for Your Visit: vaginal delivery Attending Provider: Shelly Mathew Primary Care Provider: Camilo Diggs Discharge Orders/Prescriptions Prescriptions: New ibuprofen 600 mg tablet 600 mg PO Q6H PRN (Reason: pain) 7 Days Qty: 28 0RF Rx Instructions: one tab every 6 hrs as needed for mild to moderate pain Continued Prenatabs FA 1 TABLET tablet 1 tab PO DAILY calcium phos,dibas-vitamin D3 77-400 mg-unit Tablet 1 tab PO DAILY Discontinued aspirin 81 mg tablet,delayed release (DR/EC) 81 mg PO DAILY Referrals / Follow Up: Camilo Diggs MD [Primary Care Provider] - Disposition Disposition (needs filled in before D/C Order can be placed): Home, Self Care
[2021-09-06] MEDS: Acetaminophen 500 MG Tablet 1000 MG PO (09:16)
[2021-09-06] MEDS: Ibuprofen 600 MG Tablet PO (16:26)
--- NOTE | 2021-09-06 16:31 | NURSING ---
Pt and CPR certified.
[2021-09-07 01:00] VITALS: BP 121/53; PULSE 76; RESP 18; TEMP 36.2
[2021-09-07 01:07] VITALS: TEMP 36.2
[2021-09-07 01:08] VITALS: BP 121/53; PULSE 76
[2021-09-07] MEDS: Ibuprofen 600 MG Tablet PO (01:13)
[2021-09-07 05:15] VITALS: BP 118/55; PULSE 73; RESP 16; TEMP 36.3
--- NOTE | 2021-09-07 08:50 | PN.OBGYN_ITS ---
Subjective Subjective Patient doing well without complaints. Tolerating PO. Ambulating and voiding without difficulty. Feeding well. Denies chest pain, shortness of breath, calf pain/swelling, fevers, chills, lightheadedness. Objective Data Objective Data Vital Signs: Vital Signs Temp Pulse Resp BP Pulse Ox O2 Del Method 97.3 F L 73 16 118/55 L 96 Room Air 09/07/21 05:15 09/07/21 05:15 09/07/21 05:15 09/07/21 05:15 09/06/21 09:02 09/07/21 01:00 Oxygen Delivery Method Room Air Weight: 233 lb 14.567 oz Body Mass Index (BMI) 36.6 Intake & Output: Intake and Output for Last 24 Hours 09/05/21 09/06/21 09/07/21 23:59 23:59 23:59 Intake Total 500.83 / 500.83 Output Total 1300 / 1300 Balance 500.83 / 500.83 713.04 / 713.04 Lab / Micro Data Result Diagrams: 09/05/21 21:25 Micro: Microbiology 09/05/21 21:25 Nasal Secretion SARS-CoV-2 Antigen (Rapid) - Final ROS Constitutional Constitutional: Denies chills, fatigue, fever(s), poor appetite or weakness Eyes Eyes: Denies blurry vision, change in vision, seeing flashes or spots in vision ENT HEENT: Denies dizziness, headache(s), loss taste/smell or sore throat Cardiovascular Cardiovascular: Denies chest pain, dizziness, dyspnea, irregular heart rhythm, palpitations or rapid heart rate Respiratory/Chest Respiratory/Chest: Denies chest tightness, cough, dyspnea or breast pain Gastrointestinal Gastrointestinal: Denies abdominal pain, constipation or vomiting Genitourinary Genitourinary: Denies dysuria or flank pain Musculoskeletal Musculoskeletal: Denies difficulty walking, joint pain, limited range of motion or numbness Neurologic Neurologic: Denies abnormal movements, abnormal speech, dizziness, numbness, s eizure-like activity or syncope Psychiatric Psychiatric: Denies anxiety, behavioral changes, change in appetite, confusion, depression or suicidal thoughts Physical Exam Const alert, oriented x3 and no apparent distress General Appearance: cooperative and comfortable Resp normal respiratory effort Cardio regular rate GI normal to inspection, nondistended, normoactive bowel sounds GI Narrative: uterus is firm below umbilicus Palpation: soft Back/Spine no CVA tenderness and thoraco-lumbar ROM normal Extremity normal to inspection, no clubbing, cyanosis or edema, no calf tenderness and no pedal edema Psych mental status grossly normal, thought process normal, cooperative, affect normal, speech normal, activity/motor behavior normal, denies homicidal ideation and denies suicidal ideation Assessment & Plan (1) Status post vaginal delivery: COMMENT: 09/07/21- BB Girl elba HOOKS PLAN: Plan s/p PPD # 1 1. routine post delivery care 2. breast feeding- support given 3. rh positive 4. rubella immune 5. plan for dc to home today.
[2021-09-07 09:03] VITALS: BP 126/70; PULSE 106; TEMP 36.7
[2021-09-07 09:10] VITALS: BP 126/70; PULSE 106; RESP 18; TEMP 36.7
== END 2021-09-07 11:00 | disposition home or self-care (01) | DRG 807 ==
LOC: WPOUT 21:05 → WP 21:05
PROVIDERS: Admitting Provider Obstetrics & Gynecology; PCP Family Medicine; Referring Provider Obstetrics & Gynecology; Visit Provider Obstetrics & Gynecology
DX: O70.0 First degree perineal laceration during delivery (principal); Z37.0 Single live birth; Z3A.40 40 weeks gestation of pregnancy; Z67.91 Unspecified blood type, Rh negative; Z83.49 Family history of other endocrine, nutritional and metabolic diseases; Z86.16 Personal history of COVID-19
CPT/HCPCS: 59025; 59050; 84112; 85025; 86850; 86900; 86901; 87811; 99218; J7120; G0378